=== PATIENT | male | born 1970 | race African-American/Black ===

== ENCOUNTER 2023-03-22 13:30 | Emergency (ER) | payer BC | END 2023-03-22 16:36 | disposition left against medical advice (07) | LOC: MW.ED 13:30 | DX: Z53.21 Procedure and treatment not carried out due to patient leaving prior to being seen by health care provider (principal) ==

== ENCOUNTER 2023-10-31 21:38 | Emergency (ER) | payer SELFPAY ==
[2023-10-31 23:27] LABS: CORONAVIRUS COVID-19 NAA NEGATIVE (NEGATIVE); INFLUENZA A NAA POSITIVE (NEGATIVE); INFLUENZA B NAA NEGATIVE (NEGATIVE)
[2023-10-31] MEDS ORDERED: Ibuprofen 800 MG Tab PO ONE (23:49)
== END 2023-11-01 00:02 | disposition home or self-care (01) ==
LOC: MW.ED 21:38
DX: J10.1 Influenza due to other identified influenza virus with other respiratory manifestations (principal); B34.9 Viral infection, unspecified; Z20.822 Contact with and (suspected) exposure to COVID-19
CPT/HCPCS: 0240U; 99284; A9270; 99283